=== PATIENT | female | born 1980 | race African-American/Black ===

== ENCOUNTER 2016-10-03 15:48 | Emergency (ER) | payer OTHER ==
--- NOTE | ~2016-10-03 | CR63 ---
[facility] A Service of [facility] RADIOLOGY TEXT RESULTS PATIENT: MATTHIEU ALEXANDRE LOCATION: [facility] : 80 UNIT #: [id number] AGE: [address]: Jessi Ritchie SEX: F ORDER DR: [id number] [facility] [address] [place], [place] [address] [id number] E MR#: [id number] #: [id number] NAME: MATTHIEU ALEXANDRE : 1980 SEX: F STUDY DATE/TIME: 10/03/2016 15:21 UNIT: [facility] ROOM: STUDY DESCRIPTION: CR Chest 2 View Attending Physician: Jessi Ritchie P.A.-C. Ordering Physician: Jessi Rithcie P.A.-C. Primary Care Physician: Germán Stout A.P.R.N. MEDICAL IMAGING REPORT This report is preliminary unless electronic signature is present EXAM Two-views chest 10/03/2016 HISTORY Cough and congestion 1 month ago. Fever yesterday. No known injury. Smoked for 20 years. Asthma, bronchitis. FINDINGS PA and lateral radiographs of the chest are presented. No comparisons. Heart and mediastinum are normal in size and contour. The lungs are well-inflated and clear. No pleural effusion or pneumothorax. No suspicious nodule. Bony structures unremarkable. Visualized upper abdomen unremarkable. Dictated by... Madhu Zamudio M.D. THIS IS AN ELECTRONICALLY VERIFIED REPORT Madhu Zamudio M.D. at 10/06/2016 6:08 PM Jessica TD: 10/04/2016 11:42 JOB #: [id number] MEDICAL IMAGING REPORT Page 1 of 1 COPY
[2016-10-03 15:48] LABS: INFLUENZA A POS (NEG); INFLUENZA B NEG (NEG)
[~2016-10-03 15:48] MED LIST: ALBUTEROL20 ml INH; KLONOPIN0.5 M3; LORTAB 7.5-3251 EACH PO
== END 2016-10-03 16:04 | disposition home or self-care (01) ==
LOC: CFTX 15:48
PROVIDERS: Physician Assistant
DX: J10.1 Influenza due to other identified influenza virus with other respiratory manifestations (principal); I10 Essential (primary) hypertension; J45.909 Unspecified asthma, uncomplicated; F17.210 Nicotine dependence, cigarettes, uncomplicated; Z88.0 Allergy status to penicillin
CPT/HCPCS: 71020; 87651; 87804; 99283